=== PATIENT | female | born 1965 | race African-American/Black ===

== ENCOUNTER 2021-07-23 16:12 | Emergency (ER) | payer OTHER ==
[~2021-07-23] VITALS: Ht 157.5 cm; Wt 130.0 kg
[~2021-07-23 16:12] MED LIST: AMLO5TAB88; ATEN-175; HYDR25TA
[2021-07-23 16:28] VITALS: BP 152/107
== END 2021-07-23 17:22 | disposition home or self-care (01) ==
LOC: ER 16:12
DX: U07.1 COVID-19 (principal)
CPT/HCPCS: 99281